=== PATIENT | female | born 1980 | race American Indian/Alaskan Native ===

== ENCOUNTER 2019-11-22 14:50 | Emergency (ER) | payer SELFPAY ==
--- NOTE | 2019-11-22 15:20 | Event Note ---
ED Screening Note Date of service: 11/22/19 Time: 15:09 ED Screening Note: This initial assessment/diagnostic orders/clinical plan/treatment(s) is/are subject to change based on patients health status, clinical progression and re- assessment by fellow clinical providers in the ED. Further treatment and workup at subsequent clinical providers discretion. Patient/guardian urged not to elope from the ED as their condition may be serious if not clinically assessed and managed. Initial orders include:
--- NOTE | 2019-11-22 15:25 | Emergency Department Report ---
Chief Complaint: Upper Respiratory Infection Stated Complaint: FLU SYM Time Seen by Provider: 11/22/19 15:09 - HPI History of Present Illness: 39 y/o female No recent travels or contact with Covid-19. Denies any fever in the last 48 hours. Reports chills, HERNANDEZ cough and nausea for 3 days. - Exam Physical Exam: Axo times 3 NAD non toxic. Ear are clear throat is clear Lungs are clear heart mild tachy abd no tenderness. MSE screening note: Focused history and physical exam performed. Due to findings the following was ordered: 39 y/o female No recent travels or contact with Covid-19. Denies any fever in the last 48 hours. Reports chills, HERNANDEZ cough and nausea for 3 days. Denies any SOB Patient is afebrile has not taking anything for her cough. Recommend OTC cough meds and to stay at home for 14 days. ED Disposition for MSE Disposition: Z-07 MED SCREENING EXAM-LEFT Is pt being admited?: No Does the pt Need Aspirin: No Condition: Stable Additional Instructions: Recommend OTC cough meds and to stay at home for 14 days. Increase fluids and rest. Referrals: Your,Primary Care provider [Other] - 3-5 Days Forms: Work/School Release Form(ED)
[2019-11-22 15:36] VITALS: BP 118/75
== END 2019-11-22 16:04 | disposition left against medical advice (07) ==
LOC: ED 14:50
DX: R05 Cough (principal); R11.0 Nausea; R06.02 Shortness of breath; Z53.21 Procedure and treatment not carried out due to patient leaving prior to being seen by health care provider
CPT/HCPCS: 99281